=== PATIENT | female | born 1965 | race Caucasian/White ===

== ENCOUNTER → 2017-11-07 | Outpatient (CLI) | payer OTHER ==
[~2017-11-07] VITALS: Ht 152.4 cm; Wt 68.0 kg
[~2017-11-07] MED LIST: ALLEGRA ALLERG180 MG PO; FIORICET PO; GILTUSS TR TAB1 EACH PO; HCTZ/RESERPINE/1 TAB; HYDROCHLOROTHIA25 MG; PROTONIX40 MG; PYRIDIUM DS200 MG PO; TESSALON PERLE100 MG PO; TOPROL XL25 MG PO; VISTARIL50 MG PO; XANAX XR0.5 MG PO
== END | disposition home or self-care (01) ==
LOC: PPHC 11:37
DX: R51 Headache (principal)

== ENCOUNTER 2018-03-11 16:39 | Emergency (ER) | payer OTHER ==
[~2018-03-11] VITALS: Ht 172.7 cm; Wt 68.0 kg
[2018-03-11] MEDS ORDERED: MUCINEX DM ER1 EAC1 PO (18:07)
[2018-03-11] MEDS ORDERED: FLONASE ALLERG9.9 ML NASAL (18:07)
[2018-03-11] MEDS ORDERED: ZITHROMAX TRI-500 MG PO (18:07)
[2018-03-11] MEDS ORDERED: TESSALON PERLE100 M1 PO (18:07)
[2018-03-11] MEDS ORDERED: LORATADINE10 MG PO (18:07)
== END 2018-03-11 18:11 | disposition home or self-care (01) ==
LOC: ER 16:39
DX: J06.9 Acute upper respiratory infection, unspecified (principal); R09.82 Postnasal drip

== ENCOUNTER 2018-07-21 08:43 | Emergency (ER) | payer OTHER ==
[~2018-07-21] VITALS: Ht 170.2 cm; Wt 69.4 kg
[~2018-07-21 08:43] MED LIST changes: +FLONASE ALLERG9.9 ML NASAL; +LORATADINE10 MG PO; +MUCINEX DM ER1 EAC1 PO; +TESSALON PERLE100 M1 PO; +ZITHROMAX TRI-500 MG PO
[2018-07-21] MEDS ORDERED: AVAPRO75 MG PO (09:03)
[2018-07-21] MEDS ORDERED: HYDROCHLOROTH12.5 M1 PO (09:03)
== END 2018-07-21 12:06 | disposition home or self-care (01) ==
LOC: ER 08:43
DX: R51 Headache (principal)

== ENCOUNTER → 2018-09-19 | Emergency (ER) | payer OTHER ==
[~2018-09-19] VITALS: Ht 170.2 cm; Wt 69.9 kg
[~2018-09-19] MED LIST changes: +AVAPRO75 MG PO; +HYDROCHLOROTH12.5 M1 PO
== END | disposition left against medical advice (07) ==
LOC: ER 14:54
DX: Z53.21 Procedure and treatment not carried out due to patient leaving prior to being seen by health care provider (principal)